=== PATIENT | female | born 1990 | race Caucasian/White ===

== ENCOUNTER 2022-07-27 05:09 | Emergency (ER) | payer BC ==
[~2022-07-27] VITALS: Ht 160 cm; Wt 91.4 kg
[~2022-07-27 05:09] MED LIST: FLUOXETINE HCL20 MG PO; OMEPRAZOLE20 MG PO; PRENATAL VITAM1 EACH PO; PROZAC40 MG PO; REGLAN PO; REGLAN10 MG PO; ZOFRAN ODT4 MG PO
[2022-07-27] MEDS ORDERED: LOMOTIL TABLET1 EACH PO (06:24)
[2022-07-27] MEDS ORDERED: ONDANSETRON ODT8 MG PO (06:24)
[2022-07-27] MEDS ORDERED: CYCLOBENZAPRINE10 MG PO (06:24)
== END 2022-07-27 06:42 | disposition home or self-care (01) ==
LOC: ED 05:09
DX: J10.1 Influenza due to other identified influenza virus with other respiratory manifestations (principal); Z20.822 Contact with and (suspected) exposure to COVID-19; Z88.2 Allergy status to sulfonamides; Z88.5 Allergy status to narcotic agent
CPT/HCPCS: 87502; 99283; A9270; U0003